=== PATIENT | female | born 2000 | race Caucasian/White ===

== ENCOUNTER 2020-06-06 | Emergency (ER) | payer BC, SELFPAY ==
[2020-06-06 00:04] VITALS: BP 135/84; PULSE 88; RESP 16; TEMP 36.5; O2SAT 100
--- NOTE | 2020-06-06 00:11 | ED.WOUNDLAC ---
HPI - Wound/Laceration General Chief Complaint: Wound/Laceration Stated Complaint: R farrar laceration Time Seen by Provider: 06/06/20 00:09 History of Present Illness HPI narrative: 19 yo female presents t the ED for a laceration. She was playing tag in the dark when she struck her right farrar on a metal bar. She has moderate pain. She has been able to ambulate without difficulty. Uncertain of last tetanus shot. Related Data Home Medications Medication Instructions Recorded Confirmed No Home Medications 06/06/20 06/06/20 Allergies Allergy/AdvReac Type Severity Reaction Status Date / Time No Known Allergies Allergy Verified 06/06/20 00:14 Review of Systems Review of Systems: All systems reviewed & are unremarkable except as noted in HPI and below Constitutional: Constitutional: Denies fever(s) Cardiovascular: Cardiovascular: Denies chest pain Respiratory: Respiratory: Denies dyspnea Gastrointestinal: Gastrointestinal: Denies nausea Musculoskeletal: Musculoskeletal: Denies back pain Neurologic: Denies numbness and Denies weakness Hematologic/Lymphatic: Hematologic/Lymphatic: Denies easy bleeding PMFSH Past Medical History Medical History Healthy adult Social History Social History Smoking status: Never smoker Exam Const: General: healthy appearing, no acute distress and alert Nutritional Appearance: well nourished Orientation/consciousness: patient oriented x3 HENMT: Head: normal to inspection Resp: Effort & Inspection: normal respiratory effort Cardio: Other: 2 + right DP Skin: General skin exam: normal color Wounds: wounds noted (3 cm laceration to right anterior farrar) Neuro: General: patient oriented x3, moves all extremities, no focal motor deficits and CN's II-XI intact bilaterally Speech: normal speech Gait exam (Neuro): Normal gait present Extrem: Other: No deformity. Full ROm throughout Course Vital Signs Vital signs: Vital Signs Temperature 36.5 C 06/06/20 00:04 Pulse Rate 88 06/06/20 00:04 Respiratory Rate 16 06/06/20 00:04 Blood Pressure 135/84 06/06/20 00:04 Pulse Oximetry 100 06/06/20 00:04 Temperature 36.5 C 06/06/20 00:04 Pulse Rate 74 06/06/20 01:04 Respiratory Rate 18 06/06/20 01:04 Blood Pressure 129/72 06/06/20 01:04 Pulse Oximetry 98 06/06/20 01:04 Procedures Laceration Laceration 1: Site: lower extremity Side (If applicable): right Size (cm): 3 Description: linear Depth: simple, single layer Local Anesthetic: lidocaine 1% and with epi Amount of anesthesia used (mL): 3 ====== Skin Level ====== Skin layer closed with: nylon Size (cm): 4-0 Number of sutures: 4 Technique: simple, interrupted ====== Subcutaneous Layer ====== ====== Muscle Layer ====== ====== Tendon Layer ====== Discharge Plan Discharge Clinical Impression: Laceration Patient Disposition: Home, Self-Care Condition: Stable Instructions: Care For Your Stitches (ED) Additional Instructions: Follow-up for suture removal in 10-14 days Prescriptions: No Action No Home Medications RF: 0 Follow-up/Referrals: PHYSICIAN,FOOD CLERK [Primary Care Provider] -
[2020-06-06] MEDS: TETANUS,DIPHTHERIA,AC PERTUSSIS ADULT (0.5 ML) BOOSTRIX IM (00:18)
[2020-06-06 01:04] VITALS: BP 129/72; PULSE 74; RESP 18; O2SAT 98
== END 2020-06-06 01:34 | disposition home or self-care (01) ==
PROVIDERS: Emergency Provider Emergency Medicine
DX: S81.811A Laceration without foreign body, right lower leg, initial encounter (principal); Z23 Encounter for immunization; W22.8XXA Striking against or struck by other objects, initial encounter
CPT/HCPCS: 12001; 90471; 90715; 99282